=== PATIENT | female | born 1985 | race Caucasian/White ===

== ENCOUNTER 2017-12-14 07:39 | Observation (INO) | payer MEDICAID ==
[~2017-12-14] VITALS: Ht 167.6 cm; Wt 79.1 kg
[~2017-12-14 07:39] MED LIST: ALPR-475 PO; DIAZ10TA4 PO; DOCU-131 PO; IBUP-1223 PO; LORA-446 PO; MULT-672 PO; No meds per pt.; OXYB10TA6 PO; OXYC-302 PO; OXYC10TA6 PO; PHEN-418 PO
[2017-12-14] MEDS ORDERED: PHENERMINE PO (07:49)
[2017-12-14] MEDS ORDERED: DIAZ10TA PO (07:49)
[2017-12-14] MEDS ORDERED: FAMOTIDINE 20 MG/2 ML ONE (08:00)
[2017-12-14] MEDS ORDERED: SODIUM CHLORIDE FLUSH 10ML SYR IVF ONE (08:00)
[2017-12-14] MEDS ORDERED: ONDANSETRON 2MG/ML, 2ML IVPush ONE (08:00)
[2017-12-14] MEDS ORDERED: ONDANSETRON 2MG/ML, 2ML ONE ×2 (08:00→13:49)
[2017-12-14] MEDS ORDERED: MORPHINE SULFATE 4 MG/ML, 1ML IVPush PRN (08:00)
[2017-12-14] MEDS ORDERED: FAMOTIDINE 20 MG/2 ML IVP ONE (08:00)
[2017-12-14] MEDS ORDERED: FENTANYL PF 100 MCG/2ML ONE ×4 (08:06→14:53)
[2017-12-14 08:26] LABS: ALANINE AMINOTRANSFERASE 17 U/L (12-78); ALBUMIN 3.7 g/dL (3.4-5.0); ANION GAP 5 mmol/L (5-15); CALCIUM 8.7 mg/dL (8.5-10.1); CHLORIDE 109 mmol/L (98-107); CREATININE 0.77 mg/dL (0.55-1.02)
[2017-12-14 08:29] LABS: BASOPHILS # (AUTO) 0.03 x10^3/uL (0-0.1); BASOPHILS % (AUTO) 0 % (0-1); EOSINOPHILS # (AUTO) 0.08 x10^3/uL (0-0.4); EOSINOPHILS % (AUTO) 1 % (1-7); LYMPHOCYTES # (AUTO) 2.03 x10^3/uL (1-3.4); LYMPHOCYTES % (AUTO) 23 % (22-44); MD NO; MEAN CORPUSCULAR HEMOGLOBIN 29.6 pg (27.0-34.8); MEAN CORPUSCULAR HGB CONC 33.7 g/dL (32.4-35.8); MEAN CORPUSCULAR VOLUME 87.8 fL (80-100); MONOCYTES # (AUTO) 0.66 x10^3/uL (0.2-0.8); MONOCYTES % (AUTO) 7 % (2-9); NEUTROPHILS # (AUTO) 6.23 x10^3/uL (1.8-6.8); NEUTROPHILS % (AUTO) 69 % (42-75); PLATELET COUNT 197 x10^3/uL (130-400); RED BLOOD COUNT 4.63 x10^6/uL (3.82-5.3); RED CELL DISTRIBUTION WIDTH 13.4 % (9.6-15.2)
[2017-12-14 08:30] LABS: ALKALINE PHOSPHATASE 99 U/L (45-117); BILIRUBIN,TOTAL 1.4 mg/dL (0.2-1.0); TOTAL PROTEIN 7.6 g/dL (6.4-8.2)
[2017-12-14] MEDS ORDERED: FENTANYL PF 100 MCG/2ML IV ONE ×2 (08:30→10:00)
[2017-12-14] MEDS ORDERED: SODIUM CHLORIDE 0.9% 1,000ML IVBOLUS ONE (09:30)
[2017-12-14] MEDS ORDERED: MAALOX/HYOSCYAMINE/LIDOCAINE 45 ML BTL ONE (09:36)
[2017-12-14] MEDS ORDERED: MAALOX/HYOSCYAMINE/LIDOCAINE 45 ML BTL PO ONE (10:00)
[2017-12-14 10:06] LABS: MICROSCOPIC INDICATED
[2017-12-14 10:17] LABS: CULTURE INDICATED? NO
[2017-12-14] MEDS ORDERED: OMNIPAQUE 350 MG/ML, 100ML BOTTLE ONE (10:19)
[2017-12-14] MEDS ORDERED: POTASSIUM CHLORIDE 20 MEQ in D5%-0.45% NACL 1,000 ML IV ONE (10:43)
[2017-12-14] MEDS ORDERED: FENTANYL PF 100 MCG/2ML IV PRN ×2 (11:00→14:00)
[2017-12-14] MEDS ORDERED: ONDANSETRON 2MG/ML, 2ML IVPush PRN ×2 (11:00→14:00)
[2017-12-14] MEDS ORDERED: PIPERACILLIN/TAZO/PMX 4.5GM 100 ML IV SCH (11:00)
[2017-12-14] MEDS ORDERED: PIPERACILLIN/TAZO/PMX 4.5GM 100 ML IV ONE (11:00)
[2017-12-14] MEDS ORDERED: HYDROmorphone 2 MG/ML, 1ML IVPush PRN (11:30)
[2017-12-14] MEDS: DIPHENHYDRAMINE 50 MG/ML, 1ML IVPush PRN ×2 (12:46→23:13)
[2017-12-14] MEDS: morphine SULFATE 10 MG/ML, 1ML IVPush PRN ×3 (12:47→22:07)
[2017-12-14] MEDS ORDERED: EPINEPHRINE 1 MG/ML, 1ML ONE (13:17)
[2017-12-14] MEDS ORDERED: BUPIVACAINE/PF 0.5% ONE (13:17)
[2017-12-14] MEDS ORDERED: ROCURONIUM 10 MG/ML,10ML ONE (13:49)
[2017-12-14] MEDS ORDERED: GLYCOPYRROLATE 0.2MG/1ML, 5ML ONE (13:49)
[2017-12-14] MEDS ORDERED: DEXAMETHASONE 4 MG/ML, 5ML ONE (13:49)
[2017-12-14] MEDS ORDERED: PROPOFOL 10 MG/ML, 20ML ONE (13:49)
[2017-12-14] MEDS ORDERED: KETOROLAC 30 MG/1 ML ONE (13:49)
[2017-12-14] MEDS ORDERED: SUCCINYLCHOLINE 20 MG/ML, 10ML ONE (13:49)
[2017-12-14] MEDS ORDERED: NEOSTIGMINE 1 MG/ML, 10ML ONE (13:49)
[2017-12-14] MEDS ORDERED: MIDAZOLAM 1 MG/ML, 2ML ONE (13:49)
[2017-12-14] MEDS ORDERED: FENTANYL PF 250 MCG/5ML ONE (13:49)
[2017-12-14] MEDS ORDERED: MEPERIDINE/PF 25MG/0.5ML IVPush PRN (14:00)
[2017-12-14] MEDS ORDERED: PROMETHAZINE 12.5 MG SUPP PR PRN (14:00)
[2017-12-14] MEDS ORDERED: hydrALAzine 20 MG/ML, 1ML IV PRN (14:00)
[2017-12-14] MEDS ORDERED: PROMETHAZINE 25 MG/ML, 1ML IV PRN (14:00)
[2017-12-14] MEDS ORDERED: LABETALOL 5MG/ML, 20ML IV PRN (14:00)
[2017-12-14] MEDS ORDERED: ACETAMINOPHEN 325 MG TABLET PO PRN (14:00)
[2017-12-14] MEDS ORDERED: EPINEPHRINE 1 MG/ML, 1ML INFIL ONE (14:26)
[2017-12-14] MEDS ORDERED: SUGAMMADEX 200 MG/2 ML IVPush ONE (14:48)
[2017-12-14] MEDS ORDERED: ACETAMINOPHEN 650 MG/20.3 ML UDC ONE (14:53)
[2017-12-14] MEDS ORDERED: OXYcodone 5 MG/5 ML ORAL.SOL UDC ONE (14:54)
[2017-12-14] MEDS: OXYcodone 5 MG/5 ML ORAL.SOL UDC PO PRN (14:59)
[2017-12-14] MEDS ORDERED: HYDROmorphone 1 MG/ML, 1ML ONE (15:00)
[2017-12-14] MEDS: HYDROmorphone 1 MG/ML, 1ML IV PRN ×2 (15:03→15:13)
[2017-12-14] MEDS ORDERED: morphine SULFATE 10 MG/ML, 1ML ONE (15:07)
[2017-12-14] MEDS: morphine SULFATE 10 MG/ML, 1ML IV PRN ×2 (15:09→15:21)
[2017-12-14 16:00] VITALS: BP 104/60
[2017-12-14] MEDS ORDERED: KETOROLAC 30 MG/1 ML IV PRN (17:00)
[2017-12-14] MEDS: IBUPROFEN 600 MG TABLET PO SCH (17:00)
[2017-12-14] MEDS ORDERED: ONDANSETRON 2MG/ML, 2ML IV PRN (17:00)
[2017-12-14] MEDS: ACETAMINOPHEN 500 MG TABLET PO SCH ×3 (17:00→23:09)
[2017-12-14] MEDS: POTASSIUM CHLORIDE 20 MEQ in D5%-0.45% NACL 1,000 ML IV SCH (18:14)
[2017-12-14 20:12] VITALS: BP 91/56
[2017-12-14] MEDS: SODIUM CHLORIDE FLUSH 10ML SYR IVF SCH (20:17)
[2017-12-14 23:52] VITALS: BP 103/69
[2017-12-15] MEDS: IBUPROFEN 600 MG TABLET PO SCH (00:08)
[2017-12-15 01:53] VITALS: BP 103/57
[2017-12-15] MEDS: morphine SULFATE 10 MG/ML, 1ML IVPush PRN ×2 (02:16→06:20)
[2017-12-15] MEDS: DIPHENHYDRAMINE 50 MG/ML, 1ML IVPush PRN (03:49)
[2017-12-15] MEDS: ACETAMINOPHEN 500 MG TABLET PO SCH (05:05)
[2017-12-15] MEDS: POTASSIUM CHLORIDE 20 MEQ in D5%-0.45% NACL 1,000 ML IV SCH (05:11)
[2017-12-15 07:37] VITALS: BP 101/61
[2017-12-15] MEDS ORDERED: OXYC5TAB3 PO (08:25)
[2017-12-15] MEDS ORDERED: ACET325T14 PO (08:26)
[2017-12-15] MEDS ORDERED: ACET650S21 PO (08:26)
[2017-12-15] MEDS ORDERED: IBUP-1222 PO (08:27)
[2017-12-15] MEDS: SODIUM CHLORIDE FLUSH 10ML SYR IVF SCH (09:00)
[2017-12-15] MEDS: OXYcodone 5 MG/5 ML ORAL.SOL UDC PO PRN (09:47)
[2017-12-15] MEDS ORDERED: OXYcodone IR 5MG TABLET PO PRN (11:00)
== END 2017-12-15 10:14 | disposition home or self-care (01) ==
LOC: EDBD → ED 09:29 → INTOOBSV 10:43 → UNDOADMOB 10:43 → EDIP 10:43 → 4NOR 11:27 → EDIP 11:27 → 4NOR 19:29
PROVIDERS: ADMIT Surgery; ATTEND Surgery
DX: K35.80 Unspecified acute appendicitis (principal); F41.9 Anxiety disorder, unspecified; F17.210 Nicotine dependence, cigarettes, uncomplicated
CPT/HCPCS: 36415; 44970; 74177; 76700; 80053; 81001; 83690; 84703; 85025; 88304; 96365; 96375; 96376; 99285; G0378; J0171; J0330; J1100; J1170; J1200; J1885; J2250; J2270; J2405; J2543; J2704; J2710; J3010; J3480; J3490; J7030; Q9967; 96374; S0028

== ENCOUNTER 2017-12-16 12:02 | Emergency (ER) | payer MEDICAID, OTHER ==
[~2017-12-16] VITALS: Ht 167.6 cm; Wt 84.0 kg
[~2017-12-16 12:02] MED LIST changes: +ACET325T14 PO; +ACET650S21 PO; +DEXAMETHASONE 4 MG/ML, 1ML ONE; +DIAZ10TA PO; +FENTANYL PF 250 MCG/5ML ONE; +GLYCOPYRROLATE 0.4 MG/2 ML, 2ML ONE; +IBUP-1222 PO; +KETOROLAC 30 MG/1 ML ONE; +MIDAZOLAM 1 MG/ML, 2ML ONE; +NEOSTIGMINE 1 MG/ML, 10ML ONE; +ONDANSETRON 2MG/ML, 2ML ONE; +OXYC5TAB3 PO; +PHENERMINE PO; +PROPOFOL 10 MG/ML, 20ML ONE; +ROCURONIUM 10MG/ML,5ML ONE; +SUCCINYLCHOLINE 20 MG/ML, 10ML ONE
[2017-12-16] MEDS ORDERED: METOCLOPRAMIDE 5 MG/ML, 2ML ONE (12:20)
[2017-12-16] MEDS ORDERED: DIPHENHYDRAMINE 50 MG/ML, 1ML ONE (12:20)
[2017-12-16] MEDS ORDERED: FENTANYL PF 100 MCG/2ML ONE (12:21)
[2017-12-16 12:30] LABS: HEMOGRAM NOTE RECHECKED; MEAN CORPUSCULAR HEMOGLOBIN 30.1 pg (27.0-34.8); MEAN CORPUSCULAR HGB CONC 33.7 g/dL (32.4-35.8); MEAN CORPUSCULAR VOLUME 89.3 fL (80-100); MEAN PLATELET VOLUME 9.4 fL (7.4-10.4); PLATELET COUNT 163 x10^3/uL (130-400); RED CELL DISTRIBUTION WIDTH 13.3 % (9.6-15.2)
[2017-12-16] MEDS ORDERED: METOCLOPRAMIDE 5 MG/ML, 2ML IVPush ONE (12:30)
[2017-12-16] MEDS ORDERED: DIPHENHYDRAMINE 50 MG/ML, 1ML IVPush ONE (12:30)
[2017-12-16] MEDS ORDERED: SODIUM CHLORIDE FLUSH 10ML SYR IVF ONE (12:30)
[2017-12-16] MEDS ORDERED: FENTANYL PF 100 MCG/2ML IVPush ONE (12:30)
[2017-12-16 12:38] LABS: ALANINE AMINOTRANSFERASE 14 U/L (12-78); ANION GAP 6 mmol/L (5-15); CALCIUM 8.1 mg/dL (8.5-10.1); CHLORIDE 114 mmol/L (98-107); CREATININE 0.66 mg/dL (0.55-1.02)
[2017-12-16 12:41] LABS: ALKALINE PHOSPHATASE 73 U/L (45-117); BILIRUBIN,TOTAL 0.3 mg/dL (0.2-1.0); TOTAL PROTEIN 6.4 g/dL (6.4-8.2)
[2017-12-16 12:45] LABS: BASOPHILS # (AUTO) 0.02 x10^3/uL (0-0.1); BASOPHILS % (AUTO) 0 % (0-1); EOSINOPHILS # (AUTO) 0.11 x10^3/uL (0-0.4); EOSINOPHILS % (AUTO) 2 % (1-7); LYMPHOCYTES # (AUTO) 3.25 x10^3/uL (1-3.4); LYMPHOCYTES % (AUTO) 45 % (22-44); MD SCAN; MONOCYTES # (AUTO) 0.43 x10^3/uL (0.2-0.8); MONOCYTES % (AUTO) 6 % (2-9); NEUTROPHILS # (AUTO) 3.42 x10^3/uL (1.8-6.8); NEUTROPHILS % (AUTO) 47 % (42-75)
[2017-12-16] MEDS ORDERED: OMNIPAQUE 350 MG/ML, 100ML BOTTLE ONE (14:00)
[2017-12-16 14:46] VITALS: BP 108/39
== END 2017-12-16 14:43 | disposition home or self-care (01) ==
LOC: EDBD 12:02 → ED 12:24
DX: R10.84 Generalized abdominal pain (principal)
CPT/HCPCS: 36415; 74177; 80053; 85025; 96374; 96375; 99285; J0330; J1100; J1200; J1885; J2250; J2405; J2704; J2710; J3010; Q9967

== ENCOUNTER 2017-12-24 07:28 | Emergency (ER) | payer MEDICAID ==
[~2017-12-24] VITALS: Ht 167.6 cm; Wt 79.5 kg
[~2017-12-24 07:28] MED LIST changes: -DEXAMETHASONE 4 MG/ML, 1ML ONE; -FENTANYL PF 250 MCG/5ML ONE; -GLYCOPYRROLATE 0.4 MG/2 ML, 2ML ONE; -KETOROLAC 30 MG/1 ML ONE; -MIDAZOLAM 1 MG/ML, 2ML ONE; -NEOSTIGMINE 1 MG/ML, 10ML ONE; -ONDANSETRON 2MG/ML, 2ML ONE; -PROPOFOL 10 MG/ML, 20ML ONE; -ROCURONIUM 10MG/ML,5ML ONE; -SUCCINYLCHOLINE 20 MG/ML, 10ML ONE
[2017-12-24] MEDS ORDERED: ONDANSETRON ODT 4 MG ONE (08:18)
[2017-12-24] MEDS ORDERED: HYDROmorphone 1 MG/ML, 1ML ONE (08:19)
[2017-12-24] MEDS ORDERED: ONDANSETRON 2MG/ML, 2ML IVPush ONE (08:30)
[2017-12-24] MEDS ORDERED: HYDROmorphone 1 MG/ML, 1ML IVPush PRN (08:30)
[2017-12-24] MEDS ORDERED: ONDANSETRON ODT 4 MG PO ONE (08:30)
[2017-12-24 08:32] LABS: BASOPHILS # (AUTO) 0.02 x10^3/uL (0-0.1); BASOPHILS % (AUTO) 0 % (0-1); EOSINOPHILS % (AUTO) 2 % (1-7); LYMPHOCYTES # (AUTO) 2.28 x10^3/uL (1-3.4); LYMPHOCYTES % (AUTO) 39 % (22-44); MD NO; MEAN CORPUSCULAR HEMOGLOBIN 28.9 pg (27.0-34.8); MEAN CORPUSCULAR VOLUME 87.6 fL (80-100); MEAN PLATELET VOLUME 8.3 fL (7.4-10.4); MONOCYTES # (AUTO) 0.48 x10^3/uL (0.2-0.8); MONOCYTES % (AUTO) 8 % (2-9); NEUTROPHILS # (AUTO) 2.98 x10^3/uL (1.8-6.8); NEUTROPHILS % (AUTO) 51 % (42-75); PLATELET COUNT 223 x10^3/uL (130-400); RED CELL DISTRIBUTION WIDTH 13.6 % (9.6-15.2)
[2017-12-24 08:38] VITALS: BP 105/47
[2017-12-24 08:43] LABS: ALANINE AMINOTRANSFERASE 19 U/L (12-78); ALBUMIN 3.3 g/dL (3.4-5.0); ANION GAP 9 mmol/L (5-15); CALCIUM 8.6 mg/dL (8.5-10.1); CHLORIDE 108 mmol/L (98-107); CREATININE 0.71 mg/dL (0.55-1.02)
[2017-12-24 08:48] LABS: ALKALINE PHOSPHATASE 86 U/L (45-117); BILIRUBIN,TOTAL 0.4 mg/dL (0.2-1.0)
[2017-12-24] MEDS ORDERED: LORazepam 2 MG/ML, 1ML ONE (09:17)
[2017-12-24] MEDS ORDERED: LORazepam 2 MG/ML, 1ML IVPush ONE (09:30)
== END 2017-12-24 12:00 | disposition left against medical advice (07) ==
LOC: ED 09:24
DX: R10.31 Right lower quadrant pain (principal); Z90.49 Acquired absence of other specified parts of digestive tract; R10.11 Right upper quadrant pain
CPT/HCPCS: 36415; 74021; 76700; 80053; 83690; 84703; 85025; 96374; 96375; 99285; J1170; J2060; Q0162

== ENCOUNTER 2018-03-04 13:52 | Emergency (ER) | payer MEDICAID ==
[~2018-03-04] VITALS: Ht 167.6 cm; Wt 77.1 kg
[2018-03-04] MEDS ORDERED: MORPHINE SULFATE 4 MG/ML, 1ML IVPush ONE (14:30)
[2018-03-04] MEDS ORDERED: ONDANSETRON ODT 4 MG PO ONE (14:30)
[2018-03-04 14:31] LABS: BASOPHILS # (AUTO) 0.03 x10^3/uL (0-0.1); BASOPHILS % (AUTO) 0 % (0-1); EOSINOPHILS # (AUTO) 0.04 x10^3/uL (0-0.4); EOSINOPHILS % (AUTO) 0 % (1-7); LYMPHOCYTES # (AUTO) 2.23 x10^3/uL (1-3.4); LYMPHOCYTES % (AUTO) 25 % (22-44); MD NO; MEAN CORPUSCULAR HEMOGLOBIN 29.6 pg (27.0-34.8); MEAN CORPUSCULAR HGB CONC 33.5 g/dL (32.4-35.8); MEAN CORPUSCULAR VOLUME 88.6 fL (80-100); MEAN PLATELET VOLUME 8.4 fL (7.4-10.4); MONOCYTES % (AUTO) 5 % (2-9); NEUTROPHILS # (AUTO) 6.17 x10^3/uL (1.8-6.8); NEUTROPHILS % (AUTO) 70 % (42-75); PLATELET COUNT 287 x10^3/uL (130-400); RED BLOOD COUNT 5.06 x10^6/uL (3.82-5.3); RED CELL DISTRIBUTION WIDTH 13.6 % (9.6-15.2)
[2018-03-04 14:39] LABS: MICROSCOPIC INDICATED
[2018-03-04 14:41] LABS: ALBUMIN 4.1 g/dL (3.4-5.0); ANION GAP 8 mmol/L (5-15); CALCIUM 9.6 mg/dL (8.5-10.1); CHLORIDE 108 mmol/L (98-107)
[2018-03-04 14:44] LABS: ALANINE AMINOTRANSFERASE 18 U/L (12-78); ALKALINE PHOSPHATASE 102 U/L (45-117); BILIRUBIN,TOTAL 1.5 mg/dL (0.2-1.0); CREATININE 0.79 mg/dL (0.55-1.02); TOTAL PROTEIN 8.5 g/dL (6.4-8.2)
[2018-03-04 14:48] LABS: CULTURE INDICATED? YES
[2018-03-04] MEDS ORDERED: ONDANSETRON ODT 4 MG ONE (15:01)
[2018-03-04] MEDS ORDERED: MORPHINE SULFATE 4 MG/ML, 1ML ONE (15:01)
[2018-03-04 15:06] VITALS: BP 103/78
== END 2018-03-04 16:32 | disposition home or self-care (01) ==
LOC: ED 15:56
DX: R11.2 Nausea with vomiting, unspecified (principal); Z90.49 Acquired absence of other specified parts of digestive tract; Z90.710 Acquired absence of both cervix and uterus
CPT/HCPCS: 36415; 76700; 80053; 81001; 83690; 85025; 87086; 96374; 99285; Q0162

== ENCOUNTER 2018-09-23 02:37 | Emergency (ER) | payer SELFPAY ==
[~2018-09-23] VITALS: Ht 167.6 cm; Wt 73.1 kg
[2018-09-23 02:44] VITALS: BP 121/89
[2018-09-23] MEDS ORDERED: KETOROLAC 30 MG/1 ML IM ONE ×2 (03:00→04:30)
[2018-09-23] MEDS ORDERED: KETOROLAC 30 MG/1 ML ONE ×2 (03:09→03:49)
--- NOTE | 2018-09-23 03:15 | NUR ---
PT REFUSED ORDERED TORADOL, STATED IT HURTS HER STOMACH. PT STATED SHE HAS [place] IN HER PURSE AND CAN TAKE IF SHE HAS SOME CRACKERS. INFORMED PT CAN ASK DOC WHEN DOC RETURNS. PT ASKING ALL THE LIGHTS IN ROOM BE TURNED OFF BECAUSE THE FALL HAS MADE HER EYES SENITIVE TO LIGHT. LIGHTS IN ROOM DIMMED. PT STATED SHE NEEDS ALL LIGHTS OFF, PT INFORMED THAT LIGHTS CAN BE DIMMED, A COMPLETELY DARK ROOM CREATES AN UNSAFE WORKING ENVIRONMENT. PT STATED SHE DOES NOT CARE, SHE KNOWS HER RIGHTS. PT GOING TO RAD.
--- NOTE | 2018-09-23 03:59 | NUR ---
Assist RN: patient medicated for pain. saltine crackers and juice provided.
== END 2018-09-23 04:47 | disposition home or self-care (01) ==
LOC: ED 04:40 → EDUNIT# 04:40 → ED 04:47
DX: G89.11 Acute pain due to trauma (principal); M54.2 Cervicalgia; M54.6 Pain in thoracic spine; M25.511 Pain in right shoulder; F17.200 Nicotine dependence, unspecified, uncomplicated; X58.XXXA Exposure to other specified factors, initial encounter; Y93.89 Activity, other specified; Y92.89 Other specified places as the place of occurrence of the external cause; Y99.8 Other external cause status
CPT/HCPCS: 71046; 72020; 72050; 72110; 96372; 99283; J1885